=== PATIENT | female | born 1980 | race African-American/Black ===

== ENCOUNTER 2018-12-01 07:33 | Outpatient (CLI) | payer BC ==
--- NOTE | 2018-12-01 09:17 | Cat Scan Report ---
CT ABDOMEN AND PELVIS WITHOUT CONTRAST INDICATION: Chronic constipation, LUQ abdominal pain. COMPARISON: 03/09/2014 CT. FINDINGS: Noncontrast abdomen and pelvis CT performed. LUNG BASES: Top normal heart size. No effusions. Nonspecific distal esophageal wall prominence/thickening, not excluded for gastroesophageal reflux and/or hiatal hernia, amongst others. ABDOMEN: Please note that sensitivity to detect small visceral lesions is limited due to the absence of intravenous or oral contrast. Left hepatic lobe tip again wraps around the spleen in the left upper quadrant. Otherwise grossly unremarkable unenhanced liver, spleen gallbladder, pancreas, adrenals, aorta, IVC and kidneys. No ascites. Few prominent right lower quadrant lymph nodes measure up to 1.1 x 0.8 cm axial series 2, image 100, previously 1.2 x 0.9 cm. No other definite size significant adenopathy or ascites with few small, subcentimeter mesenteric and retroperitoneal lymph nodes also seen. Nonopacified GI tract evaluation limited, though grossly nonobstructive. Normal appendix. Mild stool throughout the colon/possible constipation. PELVIS: Interval satisfactorily positioned IUD. Otherwise grossly unremarkable unenhanced uterus, adnexa/ovaries, urinary bladder and the rectosigmoid. No free fluid or significant adenopathy. Mild bilateral SI joint degenerative changes as scoliosis along the iliac aspects noted as also slight spurring. CONCLUSION: No definite acute significant CT abnormality on this limited, unenhanced exam with various incidental findings as at the imaged lung bases and upper abdomen, possible constipation and interval IUD placement since March 2014, as detailed above. Please correlate. Thank you for the opportunity to participate in this patient's care.
== END 2018-12-01 07:34 | disposition home or self-care (01) ==
LOC: CT 07:33
PROVIDERS: ATTEND Internal Medicine Gastroenterology
DX: K59.09 Other constipation (principal)
CPT/HCPCS: 74176